=== PATIENT | female | born 1975 ===

== ENCOUNTER 2021-04-12 16:01 | Emergency (ER) | payer SELFPAY ==
[~2021-04-12] VITALS: Ht 162.6 cm; Wt 131.5 kg
[2021-04-12 16:09] VITALS: BP 144/97
[2021-04-12] MEDS ORDERED: LIDOCAINE HCL (LOCAL ANESTH.) 0.5 % 50ML MDV IJ ONE (17:15)
== END 2021-04-12 17:50 | disposition home or self-care (01) ==
LOC: ER 16:01 → EDBD 16:01 → ER 17:50
DX: S60.450A Superficial foreign body of right index finger, initial encounter (principal); I10 Essential (primary) hypertension; X58.XXXA Exposure to other specified factors, initial encounter; Y93.89 Activity, other specified; Y92.89 Other specified places as the place of occurrence of the external cause; Y99.8 Other external cause status